=== PATIENT | female | born 2000 | race Caucasian/White ===

== ENCOUNTER 2019-03-17 13:08 | Emergency (ER) | payer MEDICAID ==
[~2019-03-17] VITALS: Ht 160 cm; Wt 77.1 kg
[2019-03-17 13:52] VITALS: Ht 160 cm; Wt 77.1 kg
[2019-03-17 15:05] VITALS: BP 110/84
== END 2019-03-17 16:30 | disposition home or self-care (01) ==
LOC: ED 13:08
DX: S93.402A Sprain of unspecified ligament of left ankle, initial encounter (principal); X50.1XXA Overexertion from prolonged static or awkward postures, initial encounter; Y93.89 Activity, other specified; Y92.89 Other specified places as the place of occurrence of the external cause; Y99.8 Other external cause status